=== PATIENT | male | born 1985 | race Caucasian/White ===

== ENCOUNTER 2019-05-18 08:25 | Day surgery (SDC) | payer MEDICAID, SELFPAY ==
--- NOTE | 2019-05-18 08:36 | EKG12_ITS ---
Test Reason : PRE OP Blood Pressure : / mmHG Vent. Rate : 092 BPM Atrial Rate : 092 BPM P-R Int : 170 ms QRS Dur : 082 ms QT Int : 348 ms P-R-T Axes : 047 048 022 degrees QTc Int : 430 ms Normal sinus rhythm Normal ECG No previous ECGs available Confirmed by DELBERT DAVIS ([id number]), editor book GIOVANNA SALEEM ([id number]) on 05/24/2019 1:48:19 PM Referred By: Yaniv Dubon Confirmed By:DELBERT DAVIS
[2019-05-18 08:40] VITALS: BP 144/95; PULSE 94; RESP 16; TEMP 37.2; O2SAT 97; BMI 25.9
[2019-05-18] MEDS: Lactated Ringers 1,000 ML 100 ML IV ×2 (08:54→12:06)
[2019-05-18] MEDS: Vancomycin IV 1,000 MG/200 ML BAG 200 MG IV (08:54)
[2019-05-18 08:55] LABS: Hematocrit 42.7 % (40-54); Mean Corp Hgb Conc 32.8 g/dL (32-36); Mean Corpuscular Hgb 33.2 pg (27.0-32.0); Mean Corpuscular Volume 101.2 fL (80-94); Mean Platelet Vol. 10.2 fl (6.2-12.0); Platelet Count 242 K/mm3 (150-450); RBC Distribution Width CV 13.2 % (11.6-14.6); RBC Distribution Width SD 49.4 fl (35.1-43.9); Red Blood Count 4.22 M/mm3 (4.6-6.2); White Blood Count 10.1 K/mm3 (4.4-11.0)
[2019-05-18 09:03] LABS: International Normalized Ratio 1.2; Partial Thromboplast Time 34.2 Seconds (24.1-36.2); Prothrombin Time (Protime)PT. 14.9 SECONDS (11.7-14.9)
[2019-05-18 09:14] LABS: AST(SGOT) 37 U/L (15-37); Alanine Aminotransfer ALT/SGPT 30 U/L (16-61); Albumin, Serum 2.8 g/dL (3.2-5.0); Alkaline Phosphatase 110 U/L (45-117); Anion Gap 6 (5-15); BUN 6 mg/dL (7-18); BUN/Creat Ratio 8.6 RATIO (10-20); Bilirubin, Direct 0.76 mg/dL (0.00-0.30); Chloride 110 mmol/L (98-107); EST Glomerular Filtration Rate 137 mL/min (>60); Est Glom Filt Rate - Afr Amer 166 mL/min (>60); Globulin 3.9 g/dL (2.2-4.2); Glucose 102 mg/dL (74-106); Protein, Total 6.7 g/dL (6.4-8.2); Sodium Level 142 mmol/L (136-145)
--- NOTE | 2019-05-18 10:00 | RAD_ITS ---
STUDY: X-RAY - LEFT CLAVICLE REASON FOR EXAM: Male, 33 years old. ORIF of blood the left midclavicular fracture. TECHNIQUE: Single AP view(s) of the clavicle. COMPARISON: None. FINDINGS: The patient is status post open reduction and internal fixation of a mid clavicular fracture utilizing screw and sideplate fixation device. RAD/Clavicle IMPRESSION: Satisfactory ORIF of a left mid clavicular fracture. Electronically Signed: David Dumont, at 13:55 EDT , Service support ,
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
[2019-05-18] MEDS: Bupiv/Epi 0.5% Mpf 30 ML Vial (11:24)
--- NOTE | 2019-05-18 11:37 | PCM.DC.ORTHO ---
Discharge Diet: No Restrictions Additional Instructions: Leave the dressing on clean and dry next 72 hours. No shower for 72 hours. After 72 hours may remove dressing and shower but do not submerge in tub pool or other. Encourage elbow wrist and hand range of motion immediately and shoulder when pain allows. Nonweightbearing to left upper extremity but active range of motion is okay. Do not partake in any strenuous activity. Keep incision clean do not allow pets near the area. Call if any concerns. Sling is for comfort only may remove as tolerated. Allergies/Adverse Reactions: Allergies Penicillins Allergy (Verified 05/17/19 14:09) Swelling Medications to take at Discharge furosemide 40 mg tablet 40 mg PO DAILY #30 tab 05/16/19 lorazepam 0.5 mg tablet 0.5 mg PO BID PRN #30 tab 05/16/19 potassium chloride ER 10 mEq tablet,extended release 1 tab PO DAILY #30 tab 05/16/19 prednisolone sodium phosphate 15 mg/5 mL (3 mg/mL) oral solution 15 ml PO DAILY #237 ml 05/16/19 Lactulose 15 ml PO BID 05/17/19 Oxycodone HCl/Acetaminophen [Oxycodone-Acetaminophen 5-325] 1 tab PO Q4H 05/17/19 Oxycodone HCl/Acetaminophen [Percocet 5/325] 1 - 2 tablet PO Q4H PRN PRN #50 tablet 05/18/19 The following prescriptions were given: Oxycodone HCl/Acetaminophen [Percocet 5/325] 1 - 2 tablet PO Q4H PRN PRN #50 tablet PRN Reason: Pain Transmission Status: Received by [facility]/pharmacy #[id number] Primary Care Physician: Christy Alex [Primary Care Provider] - Test Results: Test results from this visit will be discussed in further detail at your follow-up appointment, if applicable.
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
[2019-05-18 12:00] VITALS: BP 144/95; BP 152/99; PULSE 107; RESP 18; TEMP 36.6; O2SAT 96
[2019-05-18 12:15] VITALS: BP 133/83; BP 144/95; PULSE 106; RESP 18; O2SAT 93
[2019-05-18 12:30] VITALS: BP 136/94; BP 144/95; PULSE 80; RESP 18; O2SAT 95
[2019-05-18 12:45] VITALS: BP 140/97; BP 144/95; PULSE 99; RESP 18; TEMP 36.7; O2SAT 98
[2019-05-18 13:25] VITALS: BP 144/95; BP 150/88; PULSE 76; RESP 18; TEMP 36.5; O2SAT 94
== END 2019-05-18 13:33 | disposition home or self-care (01) ==
LOC: SDC 08:26 → AC 08:27
PROVIDERS: Family Provider Family Medicine; PCP Family Medicine; Referring Provider Orthopaedic Surgery; Visit Provider Orthopaedic Surgery
PROC: (CPT 23515; principal; 2019-05-18 09:40)
DX: S42.022A Displaced fracture of shaft of left clavicle, initial encounter for closed fracture (principal); V29.9XXA Motorcycle rider (driver) (passenger) injured in unspecified traffic accident, initial encounter; Y93.9 Activity, unspecified; Y92.9 Unspecified place or not applicable; Y99.9 Unspecified external cause status; K21.9 Gastro-esophageal reflux disease without esophagitis; F41.9 Anxiety disorder, unspecified; F17.200 Nicotine dependence, unspecified, uncomplicated; Z79.899 Other long term (current) drug therapy; Z88.0 Allergy status to penicillin
CPT/HCPCS: 00450; 23515; 73000; 76000; 80048; 80076; 85027; 85610; 85730; 93005; C1713; J7120; J2405

== ENCOUNTER → 2019-06-29 09:23 | Outpatient (CLI) | payer MEDICAID, SELFPAY ==
[2019-06-29 07:46] VITALS: BMI 26.4
--- NOTE | 2019-06-29 09:25 | RAD_ITS ---
STUDY: X-RAY - LEFT CLAVICLE REASON FOR EXAM: Male, 33 years old. TECHNIQUE: 2 view(s) of the clavicle. COMPARISON: Previous clavicle x-ray obtained on 04/21/2019 FINDINGS: A metallic compression plate with 6 patella. Screws is noted in place affixing a healing comminuted fracture of the mid diaphysis of the left clavicle in good position and alignment. RAD/Clavicle IMPRESSION: Status post ORIF of a healing comminuted fracture of the mid diaphysis left clavicle which is maintained in good position and alignment. Electronically Signed: Efe Chiang, at 11:19 EDT Tel , Service support ,
== END ==
PROVIDERS: Family Provider Family Medicine; PCP Family Medicine; Referring Provider Orthopaedic Surgery; Visit Provider Orthopaedic Surgery
DX: S42.002A Fracture of unspecified part of left clavicle, initial encounter for closed fracture (principal); Z47.89 Encounter for other orthopedic aftercare; X58.XXXA Exposure to other specified factors, initial encounter; Y93.9 Activity, unspecified; Y92.9 Unspecified place or not applicable; Y99.9 Unspecified external cause status
CPT/HCPCS: 73000

== ENCOUNTER 2019-08-01 20:09 | Emergency (ER) | payer MEDICAID, SELFPAY ==
[2019-06-29 07:46] VITALS: BMI 26.4
[2019-08-01 20:10] VITALS: BP 129/85; PULSE 90; RESP 17; TEMP 36.6; O2SAT 98; BMI 28.9
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
[2019-08-01 22:58] VITALS: BP 120/79; PULSE 82; RESP 16; O2SAT 98
== END 2019-08-01 22:59 | disposition home or self-care (01) ==
PROVIDERS: Emergency Provider Emergency Medicine; Family Provider Family Medicine; PCP Family Medicine
DX: S06.9X9A Unspecified intracranial injury with loss of consciousness of unspecified duration, initial encounter (principal); S16.1XXA Strain of muscle, fascia and tendon at neck level, initial encounter; S40.011A Contusion of right shoulder, initial encounter; V27.4XXA Motorcycle driver injured in collision with fixed or stationary object in traffic accident, initial encounter; Y93.9 Activity, unspecified; Y92.410 Unspecified street and highway as the place of occurrence of the external cause; Y99.9 Unspecified external cause status; F41.9 Anxiety disorder, unspecified; Z72.0 Tobacco use; Z79.899 Other long term (current) drug therapy
CPT/HCPCS: 70450; 72125; 73030; 99283